=== PATIENT | female | born 1945 | race Caucasian/White ===

== ENCOUNTER → 2017-08-28 | Day surgery (SDC) | payer MEDICARE ==
[~2017-08-28] VITALS: Ht 147.3 cm; Wt 80.0 kg
[~2017-08-28] MED LIST: ACETAMINOPHEN/HYDROcodone 325 MG/5 MG TAB PO PRN; ARTH650T6 PO; ASPI81TA11 PO; ATEN100T PO; ATOR20TA15 PO; BUPIVACAINE/EPINEPHRINE 0.5% 50 ML VIAL ONE; CHLORHEXIDINE GLUCONATE 2 % 1 PACK (2 CLOTHS) TOPICAL PRN; CHLORHEXIDINE GLUCONATE 4% SOLN 120 ML BTL TOPICAL SCH; GLYCOPYRROLATE 0.2 MG/ML VIAL IV ONE; INSULIN HUMAN REGULAR 1,000 UNITS/10 ML VIAL SQ PRN; KETOROLAC TROMETHAMINE 60 MG/2 ML (IM) VIAL IM PRN; LACTATED RINGER'S 1000 ML IV PRN; LEVO125T4 PO; LOSA100T2 PO; MECL12.574 PO; METOPROLOL TARTRATE 25 MG TAB PO PRN; MIDAZOLAM HCL 2 MG/2 ML VIAL ONE; MULT-177 PO; NEOSTIGMINE 3 MG/3 ML SYR IV ONE; NITR0.4S SL; OMEP20TA PO; ONDANSETRON HCL 4 MG/2 ML VIAL IV PRN; ONDANSETRON HCL 4 MG/2 ML VIAL IV PUSH ONE; PHENYLEPH/NS 1000 MCG/10 ML SYR IV ONE; POTA-255 PO; POVIDONE IODINE 5% (ANTISEPSIS KIT) 4 APPLICATIONS EACH NARE PRN; PROPOFOL 200 MG/20 ML AMP IV ONE; SACC1CAP3 PO; SODIUM CHLOR 0.9% 250 ML INJ 250 ML ONE; SODIUM CHLORID 0.9% 500 ML IV PRN; STOO100C PO; SUGAMMADEX SODIUM 200 MG/2 ML VIAL IV PUSH ONE; TIMO0.5S30 EACH EYE; VANCOMYCIN 1000 MG/NS 250 ML (for <70 kg) IV SCH; VANCOMYCIN HCL 1000 MG VIAL ONE; ceFAZolin 2 GM PREMIX 50 ML IV SCH; ceFAZolin 2 GM PREMIX 50 ML ONE; ePHEDrine/NS 25 MG/5 ML SYR IV ONE
[2017-08-28 09:00] VITALS: PULSE 54
[2017-08-28 09:25] VITALS: PULSE 56
--- NOTE | 2017-08-28 13:01 | MP ---
cc: MARTHA SIFUENTES M.D. DATE OF SURGERY 08/28/[address] Jose Manuel Sifuentes PREOPERATIVE DIAGNOSIS Impingement syndrome left shoulder with tendinosis. POSTOPERATIVE DIAGNOSIS Complete avulsion rotator cuff left shoulder with impingement syndrome. PROCEDURE Repair of chronic avulsion rotator cuff tear and reconstruction left shoulder. DETAILS OF THE PROCEDURE The patient was placed on the operating table in a supine position. Adequate general anesthesia was administered by the anesthesiologist. The patient's left shoulder was prepped and draped in the usual sterile fashion. The patient was placed in a modified beach-chair position. A time-out was called and the patient's name procedure and location were fully confirmed. A local infiltration of the subcutaneous tissues with several cc's of 0.5% Marcaine with epinephrine was carried out for hemostasis. A 1-inch incision was made over the acromial process along the anterior and superior surface. The dissection was carried down through the subcutaneous tissues and bleeding points were electrocauterized. The underlying acromioclavicular ligament was identified and we immediately encountered severe spontaneous fluid drainage from the subacromial space which was clear yellow in color. No signs of infection were present. A partial acromionectomy was performed with a high-speed power bur. This allowed us greater access to the rotator cuff which was completely avulsed, but we were able to retrieve it from far medially utilizing an Allis clamp and finger dissection. A bioabsorbable anchor was placed adjacent to the greater tuberosity somewhat more medial than usual due to the tightness and chronicity of the rotator cuff tear. We were able to place several sutures through the rotator cuff and then bring it laterally and attach it to the anchor with the #2 FiberWire. Surprisingly, good closure was obtained. The biceps appeared to be free within the subacromial space and we elected to tenodese the biceps as well. The bursal tissues were further debrided and excised with some of the thicker bursal tissue being placed over the repair. The deltoid muscle was then reinserted along the anterior border of the distal clavicle with interrupted sutures of #2 FiberWire. The subcutaneous tissue was closed with interrupted 2-0 Vicryl. The skin edges were approximated with a subcuticular suture of 4-0 Vicryl followed by application of Steri-Strips. A bulky dressing was applied over the wound and a sling and swath immobilizer was also provided and applied. Sponge count, needle counts were counts were reported correct x2. Estimated blood loss was minimal. The procedure was tolerated well and the patient went to the recovery room in satisfactory condition. MD ONEIDA Gómez/HONEY /12:43 PM /12:52 PM
[2017-08-28 14:30] VITALS: BP 135/72; PULSE 70; RESP 16; TEMP 97.5; O2SAT 97
== END | disposition home or self-care (01) ==
LOC: PHSDC 06:52
PROVIDERS: ATTEND Orthopaedic Surgery
DX: S43.422A Sprain of left rotator cuff capsule, initial encounter (principal); M75.42 Impingement syndrome of left shoulder
CPT/HCPCS: 01610; 23412; 64415; A4566; C1713; J0690; J2250; J2370; J2405; J2710; J3370; J7050; J7120